=== PATIENT | female | born 1955 | race Two or more races ===

== ENCOUNTER 2020-11-13 21:44 | Inpatient (IN) | payer MEDICARE, MEDICAID ==
[~2020-11-13] VITALS: Ht 162.6 cm; Wt 99.8 kg
[2020-11-13 23:14] LABS: HEMATOCRIT. 33.3 % (36.0-48.0); HEMOGLOBIN. 10.2 g/dL (12.0-16.0); MEAN CORPUSCULAR HEMOGLOBIN 24.2 pg (28.0-32.0); RED BLOOD CELL COUNT 4.22 mill/uL (4.2-5.4)
[2020-11-13 23:19] LABS: CHLORIDE 114 mEq/L (98-107)
[2020-11-13 23:22] LABS: PROTHROMBIN TIME 10.3 sec (9.6-11.0)
[2020-11-13 23:24] LABS: ETHANOL BLOOD < 10 mg/dL
[2020-11-13 23:26] LABS: LDL CHOLESTEROL 132 mg/dL (5-100)
[2020-11-13 23:32] LABS: PLATELET ESTIMATE NORMAL
[2020-11-13 23:34] LABS: MEAN PLATELET VOLUME 9.2 fl (7.4-10.4); PLATELET 236 x1000/uL (130-400)
[2020-11-14] MEDS ORDERED: OLANZAPINE 10 MG/VIAL IM ONE (02:45)
[2020-11-14] MEDS ORDERED: ONDANSETRON HCL 4MG/2ML INJ IV PRN (09:00)
[2020-11-14] MEDS ORDERED: ACETAMINOPHEN 325MG TABLET PO PRN (09:00)
[2020-11-14] MEDS: HYDROCODONE/ACETAMINOPHEN 5/325MG TABLET PO PRN ×3 (10:10→23:49)
[2020-11-14] MEDS: ENOXAPARIN 40MG/0.4ML SYR SUBCUT SCH (10:55)
[2020-11-14] MEDS: DIPHENHYDRAMINE 50MG/ML VIAL IV PRN ×2 (14:40→22:47)
[2020-11-14] MEDS: LORAZEPAM 2MG/ML CPJ IV PRN ×2 (15:11→22:47)
[2020-11-14] MEDS: CLONIDINE 0.1MG TABLET PO PRN (16:45)
[2020-11-14] MEDS: OLANZAPINE 5MG TABLET PO SCH (20:30)
[2020-11-15] MEDS: DIPHENHYDRAMINE 50MG/ML VIAL IV PRN (04:15)
[2020-11-15] MEDS: CLONIDINE 0.1MG TABLET PO PRN ×2 (04:16→11:07)
[2020-11-15 04:18] LABS: BASOPHILS % 0.6 % (0.0-2.0); EOSINOPHILS % 3.4 % (0.0-5.0); HEMATOCRIT. 35.6 % (36.0-48.0); LYMPHOCYTES % 29.3 % (20.0-50.0); MEAN CORPUSCULAR HEMOGLOBIN 23.9 pg (28.0-32.0); MEAN CORPUSCULAR VOLUME 77.6 fL (81.0-99.0); MEAN PLATELET VOLUME 8.7 fl (7.4-10.4); MONOCYTES % 6.6 % (2.0-8.0); NEUTROPHILS % 60.1 % (40.0-76.0); PLATELET 296 x1000/uL (130-400); RED BLOOD CELL COUNT 4.59 mill/uL (4.2-5.4); RED CELL DISTRIBUTION WIDTH 20.6 % (11.6-14.6)
[2020-11-15 04:20] LABS: CHLORIDE 110 mEq/L (98-107)
[2020-11-15 04:30] LABS: LDL CHOLESTEROL 165 mg/dL (5-100)
[2020-11-15 04:32] LABS: HDL CHOLESTEROL 46 mg/dL (40-59)
[2020-11-15] MEDS ORDERED: HYDRALAZINE 20MG/ML VIAL IV PRN (06:45)
[2020-11-15] MEDS ORDERED: NIFEDIPINE XL 60MG TAB PO SCH (07:00)
[2020-11-15] MEDS ORDERED: LISINOPRIL 40MG TABLET PO SCH (07:00)
[2020-11-15] MEDS: HYDROCODONE/ACETAMINOPHEN 5/325MG TABLET PO PRN (07:05)
[2020-11-15] MEDS ORDERED: TRIAMTERENE/HYDROCHLOROTHIAZIDE 37.5/25MG CAPSULE PO SCH (08:00)
[2020-11-15] MEDS: OLANZAPINE 5MG TABLET PO SCH (08:24)
[2020-11-15] MEDS: ENOXAPARIN 40MG/0.4ML SYR SUBCUT SCH (08:24)
[2020-11-15 11:36] VITALS: BP 168/96
== END 2020-11-15 16:15 | disposition left against medical advice (07) | DRG 93 ==
LOC: EDBD 21:44 → ER 21:44 → EDBEDREQDT 11-14 00:10 → EDBEDREQ 11-14 00:10 → EDBEDREQTM 11-14 00:10 → EDBEDREQSVC 11-14 00:10 → 8WST 11-15 00:04 → ENRESERV 11-15 09:43
PROVIDERS: ADMIT Internal Medicine; ATTEND Internal Medicine
DX: G92 Toxic encephalopathy (principal); F20.9 Schizophrenia, unspecified; E78.5 Hyperlipidemia, unspecified; I50.9 Heart failure, unspecified; I11.0 Hypertensive heart disease with heart failure; Z53.29 Procedure and treatment not carried out because of patient's decision for other reasons; J45.909 Unspecified asthma, uncomplicated; M19.90 Unspecified osteoarthritis, unspecified site; Z90.710 Acquired absence of both cervix and uterus; Z88.6 Allergy status to analgesic agent; Z88.8 Allergy status to other drugs, medicaments and biological substances
CPT/HCPCS: 36415; 71045; 80053; 80061; 80320; 82962; 83721; 84443; 84484; 85025; 93005; 93971; 96372; 96374; 96375; 99291; J0360; J1200; J1650; J2060; J3490; G0480